=== PATIENT | male | born 1950 | race Caucasian/White ===

== ENCOUNTER 2018-03-23 10:00 | Emergency (ER) | payer OTHER ==
[~2018-03-23] VITALS: Ht 182.9 cm; Wt 75.9 kg
[2018-03-23] MEDS ORDERED: KEFLEX500 MG PO (11:07)
[2018-03-23] MEDS ORDERED: NORCO 5/3251 TABLET PO (11:07)
[2018-03-23] MEDS ORDERED: SILVADENE20 GM TP (11:07)
[2018-03-23 11:56] VITALS: BP 138/86
== END 2018-03-23 12:03 | disposition home or self-care (01) ==
LOC: EME 10:00
PROC: 3E0234Z Introduction of Serum, Toxoid and Vaccine into Muscle, Percutaneous Approach (ICD-10-PCS; principal; 2018-03-23)
DX: S90.822A Blister (nonthermal), left foot, initial encounter (principal); S90.821A Blister (nonthermal), right foot, initial encounter; X58.XXXA Exposure to other specified factors, initial encounter; Y93.02 Activity, running; Z23 Encounter for immunization
CPT/HCPCS: 99281; 99284